=== PATIENT | female | born 1990 | race Caucasian/White ===

== ENCOUNTER 2019-07-12 07:05 | Emergency (ER) | payer BC, MEDICAID, OTHER ==
[2019-07-12 07:15] VITALS: BP 119/73
[2019-07-12] MEDS ORDERED: Fluorescein Sodium TOPICAL* 1 MG TEST STRIP OPHTHALMIC ONE (07:19)
--- NOTE | 2019-07-12 07:20 | UC ---
Eye Complaint HPI - HPI Summary HPI Summary: Patient presents to urgent care for evaluation of redness in her right eye. Patient states his sister last night. Patient is a contact lens wear. Color last night. Patient denies any eye pain but states there is some burning. Patient denies fevers or chills. No sinus congestion no sore throat no ear pain. Patient denies any changes to her vision and she is wearing corrective glasses. Patient without history of eye surgery. Patient - History of Current Complaint Chief Complaint: UCEye Stated Complaint: EYE ISSUE Time Seen by Provider: 07/12/19 07:19 Hx Obtained From: Patient Hx Last Menstrual Period: middle of June Pain Intensity: 5 - Allergies/Home Medications Allergies/Adverse Reactions: Allergies Allergy/AdvReac Type Severity Reaction Status Date / Time No Known Allergies Allergy Verified 07/12/19 07:15 PMH/Surg Hx/FS Hx/Imm Hx Previously Healthy: Yes - Surgical History Surgical History: Yes Surgery Procedure, Year, and Place: Appendectomy 2010 - Family History Known Family History: Positive: Hypertension - FATHER, Diabetes - FATHER, Non- Contributory - Social History Occupation: Employed Full-time - [employer] Alcohol Use: None Substance Use Type: None Substance Use Comment - 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 Smoking Status (MU): Light Every Day Tobacco Smoker Type: Cigarettes Amount Used/How Often: 1/2 ppd - Immunization History Most Recent Influenza Vaccination: none Most Recent Tetanus Shot: 09/11/14 Most Recent Pneumonia Vaccination: none Review of Systems All Other Systems Reviewed And Are Negative: Yes Constitutional: Positive: Negative Skin: Positive: Negative Eyes: Positive: Drainage, Eye Redness Physical Exam - Summary Physical Exam Summary: Vital Signs Reviewed: Yes A+Ox3, no distress Eyes: Conjunctiva injected, erythema SARA, EOM intact and full, mild clear discharge, no photophobia, [place] fundoscopic margins No fluorescence uptake ENT: Hearing grossly normal. TMX 2 clear mmm no exudate, no erythema neck: supple Respiratory: Positive: No respiratory distress, No accessory muscle use Cardiovascular: skin color reflect adequate perfusion Musculoskeletal Exam: SMITH x 4 without difficulty Neurological: Positive: Alert, ambulatory without difficulty Psychological: Positive: Normal Response To examiner Skin: Positive: no rash, no ecchymosis Triage Information Reviewed: Yes Vital Signs: Initial Vital Signs Temp 97.2 F 07/12/19 07:11 Pulse 87 07/12/19 07:11 Resp 16 07/12/19 07:11 BP 119/73 07/12/19 07:11 Pulse Ox 100 07/12/19 07:11 Eye Complaint Course/Dx - Course Course Of Treatment: Patient presented to urgent care for evaluation of her right eye. Patient's contact lens wear. Patient states her eye became red yesterday. Patient was clear drainage. Patient states there is a little bit of burning. No photophobia. Patient without sick contacts. Patient without complaints. On exam vital signs are stable. Visual acuity reviewed. Patient with diffuse injection of the eye. Scant clear drainage. No photophobia progress margins. No forcing uptake. Discussed with patient precautions related to contact lenses. We'll start her fluoroquinolone. Patient given referral information for ophthalmology if symptoms persist or worsen. Patient Motrin Tylenol for pain. Work note. Patient comfortable in agreement with plan. - Differential Dx/Diagnosis Provider Diagnosis: Conjunctivitis Discharge ED - Sign-Out/Discharge Documenting (check all that apply): Patient Departure All imaging exams completed and their final reports reviewed: No Studies - Discharge Plan Condition: Stable Disposition: HOME Prescriptions: Ofloxacin 0.3% (Eye Drop) [Ocuflox OPTH 0.3% (Eye Drop)] 2 drop BOTH EYES Q6HR # 1 btl Patient Education Materials: Conjunctivitis (ED) Forms: *Work Release Referrals: No Primary Care Phys,NOPCP [Primary Care Provider] - John Meehan MD [Medical Doctor] - Additional Instructions: - apply eye drops to affected every 4 times a day for 7 days -okay to alternate ibuprofen (Advil, Motrin) 600mg and tylenol every 3 hours for pain. Take with food - these infections are very contagious - thoroughly wash hands before and after applying eye drops. - wash her bedding, pillows frequently - If eyelids become sticky - use a warm, wet cloth to soften and clean away secretions - do NOT put contact lenses back in your eye for a period of 1 week. Throw the lenses you were wearing yesterday. -contact the shredding specialist to schedule a follow-up or if you have any questions or concerns - pain, increased reddness,vision changes or any other concerns - Billing Disposition and Condition Condition: STABLE Disposition: Home
== END 2019-07-12 07:35 | disposition home or self-care (01) ==
LOC: UCEAST 07:05
DX: H10.9 Unspecified conjunctivitis (principal); F17.210 Nicotine dependence, cigarettes, uncomplicated
CPT/HCPCS: 99212; A9270-GY; G0463

== ENCOUNTER 2019-11-13 17:13 | Emergency (ER) | payer OTHER ==
--- NOTE | 2019-11-13 17:16 | UC ---
Ear Complaint HPI - HPI Summary HPI Summary: 28 yo female presents with ear pain. She tells me that over the last 4-5 days she has had sinus congestion, post nasal drip, and dry cough. Over the last 2 days has had worsening left ear pain with decreased hearing. Denies fever, chills, sore throat, abdominal pain, n/v. - History of Current Complaint Stated Complaint: EAR PAIN Time Seen by Provider: 11/13/19 17:16 Hx Obtained From: Patient ?: No Onset/Duration: Gradual Onset Severity Initially: Mild Severity Currently: Moderate Pain Intensity: 5 Pain Scale Used: 0-10 Numeric - Allergies/Home Medications Allergies/Adverse Reactions: Allergies Allergy/AdvReac Type Severity Reaction Status Date / Time No Known Allergies Allergy Verified 11/13/19 17:21 PMH/Surg Hx/FS Hx/Imm Hx - Additional Past Medical History Additional PMH: None - Surgical History Surgical History: Yes Surgery Procedure, Year, and Place: Appendectomy 2010 - Family History Known Family History: Positive: Hypertension - FATHER, Diabetes - FATHER, Non- Contributory - Social History Occupation: Employed Full-time Lives: With Family Alcohol Use: None Substance Use Type: None Substance Use Comment - Amount & Last Used: = Smoking Status (MU): Light Every Day Tobacco Smoker Type: Cigarettes Amount Used/How Often: 1/2 ppd - Immunization History Most Recent Influenza Vaccination: none Most Recent Tetanus Shot: 09/11/14 Most Recent Pneumonia Vaccination: none Review of Systems All Other Systems Reviewed And Are Negative: No Constitutional: Positive: Negative Skin: Positive: Negative Eyes: Positive: Negative ENT: Positive: Ear Ache, Sinus Congestion Respiratory: Positive: Negative Cardiovascular: Positive: Negative Gastrointestinal: Positive: Negative Physical Exam - Summary Physical Exam Summary: GENERAL: NAD. WDWN. No pain distress. SKIN: No rashes, sores, lesions, or open wounds. HEENT: Head: AT/NC Eyes: EOM intact. Conjunctiva clear without inflammation or discharge. Ears: Hearing grossly normal. LEFT TM with mdoerate erythema and bulging. No canal edema or drainage. Nose: Nasal mucosa pink and moist. NTTP maxillary and frontal sinus. Throat: Posterior oropharynx without exudates, erythema, or tonsillar enlargement. Uvula midline. NECK: Supple. Nontender. No lymphadenopathy. CHEST: CTAB. No r/r/w. No accessory muscle use. Breathing comfortably and in no distress. CV: RRR. Without m/r/g. Pulses intact. NEURO: Alert. PSYCH: Age appropriate behavior. Triage Information Reviewed: Yes Vital Signs: Vital Signs: Temp Pulse Resp BP Pulse Ox 98.3 F 76 18 140/80 100 11/13/19 17:22 11/13/19 17:22 11/13/19 17:22 11/13/19 17:22 11/13/19 17:22 Vital Signs Reviewed: Yes Ear Complaint Course/Dx - Course Course Of Treatment: otitis media - Differential Dx/Diagnosis Provider Diagnosis: Otitis media Discharge ED - Sign-Out/Discharge Documenting (check all that apply): Patient Departure All imaging exams completed and their final reports reviewed: No Studies - Discharge Plan Condition: Stable Disposition: HOME Prescriptions: Amoxicillin PO (*) [Amoxicillin 875 MG (*)] 875 mg PO BID #14 tab Loratadine [Claritin] 10 mg PO DAILY #14 tablet Patient Education Materials: Ear Infection (ED) Referrals: No Primary Care Phys,NOPCP [Primary Care Provider] - Additional Instructions: If you develop a fever, shortness of breath, chest pain, new or worsening symptoms - please call your PCP or go to the ED immediately. - Billing Disposition and Condition Condition: STABLE Disposition: Home
[2019-11-13 17:23] VITALS: BP 140/80
== END 2019-11-13 18:00 | disposition home or self-care (01) ==
LOC: UCEAST 17:13
DX: H66.92 Otitis media, unspecified, left ear (principal); F17.210 Nicotine dependence, cigarettes, uncomplicated; R09.89 Other specified symptoms and signs involving the circulatory and respiratory systems
CPT/HCPCS: 99212; G0463